=== PATIENT | female | born 1990 | race Hispanic/Latino ===

== ENCOUNTER 2016-10-02 10:51 | Emergency (ER) | payer MEDICAID, OTHER ==
[2016-10-02 10:51] VITALS: BMI 20.2
[2016-10-02 10:57] VITALS: BP 139/72; PULSE 71; RESP 18; TEMP 98.3; O2SAT 100
--- NOTE | 2016-10-02 11:45 | ED PDOC ---
HPI: General Adult Time Seen by Provider: 10/02/16 11:11 Chief Complaint (Nursing): Headache History Per: Patient History/Exam Limitations: no limitations Onset/Duration Of Symptoms: Days Additional Complaint(s): 26-year-old female, presents to the emergency department with complaints of headache. Patient states she sustained injury to the right side of the back of her head and left neck, three days ago. Patient notes that she has been experiencing persistent localized pain since fall. She is taking Motrin with minimal relief, (last dose last night), resulting in her coming to the ED for evaluation. No relieving/exacerbating factors. Not the worst headache of her life. Denies numbness/weakness, visual changes, nausea/vomiting, dizziness, or any other asspcoayed symptoms. No other complaints at this time. Past Medical History Reviewed: Historical Data, Nursing Documentation, Vital Signs Vital Signs: Last Vital Signs Temp 98.3 F 10/02/16 10:56 Pulse 71 10/02/16 10:56 Resp 18 10/02/16 10:56 BP 139/72 10/02/16 10:56 Pulse Ox 100 10/02/16 11:59 - Family History Family History: States: Unknown Family Hx - Immunization History Hx Tetanus Toxoid Vaccination: Yes Hx Influenza Vaccination: Yes Hx Pneumococcal Vaccination: No - Home Medications Home Medications: Ambulatory Orders Medication Instructions Recorded Ibuprofen [Motrin Tab] 800 mg PO Q6H PRN #20 tab 10/02/16 diaZEpam [Valium] 5 mg PO Q6H PRN #15 tab 10/02/16 - Allergies Allergies/Adverse Reactions: Allergies Allergy/AdvReac Type Severity Reaction Status Date / Time No Known Allergies Allergy Verified 02/27/16 14:36 Review of Systems ROS Statement: Except As Marked, All Systems Reviewed And Found Negative Constitutional: Negative for: Fever, Chills Respiratory: Negative for: Shortness of Breath Gastrointestinal: Negative for: Nausea, Vomiting Musculoskeletal: Positive for: Neck Pain. Negative for: Back Pain Neurological: Positive for: Headache. Negative for: Weakness, Numbness, Incoordination, Change in Speech, Confusion, Seizures, Altered Mental Status, Dizziness Physical Exam - Reviewed Nursing Documentation Reviewed: Yes Vital Signs Reviewed: Yes - Physical Exam Appears: Positive for: Non-toxic, No Acute Distress Head Exam: Positive for: ATRAUMATIC, NORMOCEPHALIC (mild tenderness to base of skull) Skin: Positive for: Warm, Dry. Negative for: Rash Eye Exam: Positive for: Normal appearance, EOMI Neck: Positive for: Supple (No paracervical tenderness. ) Cardiovascular/Chest: Positive for: Regular Rate, Rhythm Respiratory: Negative for: Accessory Muscle Use, Respiratory Distress Back: Positive for: Other (Right paraspinal tenderness, and right trapezius) Extremity: Positive for: Normal ROM Neurologic/Psych: Positive for: Alert, clinical review specialist II-XII, Oriented, Gait (normal), Other (No focal neuro deficits.). Negative for: Motor/Sensory Deficits - ECG O2 Sat by Pulse Oximetry: 100 Medical Decision Making Medical Decision Making: Impression Headache. Plan * Toradol, Valium * Reassess and Disposition PT states she prefers not to wait. Scribe Attestation: Documented by David Avalos, acting as a scribe for JUAN MANUEL Miller. Provider Scribe Attestation: All medical record entries made by the Scribe were at my direction and personally dictated by me. I have reviewed the chart and agree that the record accurately reflects my personal performance of the history, physical exam, medical decision making, and the department course for this patient. I have also personally directed, reviewed, and agree with the discharge instructions and disposition. Disposition - Clinical Impression Clinical Impression: Neck muscle strain - Patient ED Disposition Is Patient to be Admitted: No - Disposition Disposition: Routine/Home Disposition Time: 11:54 Condition: STABLE Prescriptions: Ibuprofen [Motrin Tab] 800 mg PO Q6H PRN #20 tab PRN Reason: Pain diaZEpam [Valium] 5 mg PO Q6H PRN #15 tab PRN Reason: Pain Instructions: Musculoskeletal Pain (ED)
== END 2016-10-02 12:06 | disposition home or self-care (01) ==
LOC: H.ER 10:51
DX: M54.2 Cervicalgia (principal)

== ENCOUNTER 2017-01-14 11:44 | Emergency (ER) | payer MEDICAID, OTHER ==
[2017-01-14 11:44] VITALS: BMI 20.2
[2017-01-14 11:56] VITALS: BP 102/64; PULSE 82; RESP 18; TEMP 98.2; O2SAT 100
--- NOTE | 2017-01-14 13:02 | ED PDOC ---
HPI: General Adult Time Seen by Provider: 01/14/17 12:04 Chief Complaint (Nursing): Eye Problem History Per: Patient Additional Complaint(s): Pt. states yesterday she developed R sided eye redness and discharge which became worse this morning. Pt. states she had a hard time opening the R eye. Denies visual changes, pain, trauma, fever, contact lens use, hx of DM. Past Medical History Reviewed: Historical Data, Nursing Documentation, Vital Signs Vital Signs: Last Vital Signs Temp 98.2 F 01/14/17 11:54 Pulse 82 01/14/17 11:54 Resp 18 01/14/17 11:54 BP 102/64 01/14/17 11:54 Pulse Ox 100 01/14/17 11:54 - Family History Family History: States: No Known Family Hx - Immunization History Hx Tetanus Toxoid Vaccination: Yes Hx Influenza Vaccination: Yes Hx Pneumococcal Vaccination: No - Home Medications Home Medications: Ambulatory Orders Medication Instructions Recorded Ibuprofen [Motrin Tab] 800 mg PO Q6H PRN #20 tab 10/02/16 diaZEpam [Valium] 5 mg PO Q6H PRN #15 tab 10/02/16 Erythromycin 0.5% [Erythromycin] 1 applic RIGHTEYE Q6 #1 tube 01/14/17 - Allergies Allergies/Adverse Reactions: Allergies Allergy/AdvReac Type Severity Reaction Status Date / Time No Known Allergies Allergy Verified 01/14/17 11:51 Review of Systems ROS Statement: Except As Marked, All Systems Reviewed And Found Negative Physical Exam - Physical Exam Appears: Positive for: Well, Non-toxic, No Acute Distress Head Exam: Positive for: ATRAUMATIC, NORMAL INSPECTION, NORMOCEPHALIC Skin: Positive for: Normal Color, Warm. Negative for: Rash Eye Exam: Positive for: EOMI, PERRL, Conjunctival injection (R eye), Other ( yellow crusting noted to R eye). Negative for: Periorbital swelling, Periorbital tenderness Neurologic/Psych: Positive for: Alert, Oriented. Negative for: Aphasia, Facial Droop - ECG O2 Sat by Pulse Oximetry: 100 Disposition - Clinical Impression Clinical Impression: Conjunctivitis - Patient ED Disposition Is Patient to be Admitted: No - Disposition Referrals: [facility] [Outside] Disposition: Routine/Home Disposition Time: 12:55 Condition: STABLE Prescriptions: Erythromycin 0.5% [Erythromycin] 1 applic RIGHTEYE Q6 #1 tube Instructions: Conjunctivitis (ED) Print Language: SUDANESE
== END 2017-01-14 13:27 | disposition home or self-care (01) ==
LOC: H.ER 11:44
DX: H10.9 Unspecified conjunctivitis (principal)

== ENCOUNTER 2017-06-24 13:23 | Emergency (ER) | payer MEDICAID, OTHER ==
[2017-06-24 13:24] VITALS: BMI 20.2
[2017-06-24 13:36] VITALS: BP 117/70; PULSE 65; RESP 16; TEMP 97; O2SAT 98
--- NOTE | 2017-06-24 14:30 | ED PDOC ---
HPI: Female Pain Time Seen by Provider: 06/24/17 14:20 Chief Complaint (Nursing): Female Genitourinary Chief Complaint (Provider): uti History Per: Patient History/Exam Limitations: no limitations Additional Complaint(s): 27yo F in Ed for eval of dysurai, urinary freq, urgency and burning. states she is sexually active and has not use protection, last DEPO preva inj was at least 3 months ago and she had not seen her period no back pain admits to once time vomiting two days ago. Past Medical History Reviewed: Historical Data, Nursing Documentation, Vital Signs Vital Signs: Last Vital Signs Temp 97.0 F L 06/24/17 13:33 Pulse 65 06/24/17 13:33 Resp 16 06/24/17 13:33 BP 117/70 06/24/17 13:33 Pulse Ox 98 06/24/17 13:33 - Medical History PMH: No Chronic Diseases - Family History Family History: States: Unknown Family Hx - Immunization History Hx Tetanus Toxoid Vaccination: Yes (5 YEARS AGO) Hx Influenza Vaccination: Yes Hx Pneumococcal Vaccination: No - Home Medications Home Medications: Ambulatory Orders Medication Instructions Recorded Cephalexin [Keflex] 250 mg PO Q6 3 Days #12 capsule 06/01/17 oxyCODONE/Acetaminophen [Percocet 1 ea PO Q8 PRN 2 Days #3 tab MDD 3 06/01/17 5/325 mg Tab] Nitrofurantoin Macrocrystals 100 mg PO BID #14 cap 06/24/17 [Macrobid] Multivit/Folic Acid/I 1 tab PO DAILY #30 tab 06/24/17 [ Plus] - Allergies Allergies/Adverse Reactions: Allergies Allergy/AdvReac Type Severity Reaction Status Date / Time No Known Allergies Allergy Verified 06/01/17 21:20 Review of Systems ROS Statement: Except As Marked, All Systems Reviewed And Found Negative Gastrointestinal: Positive for: Nausea Genitourinary Female: Positive for: Dysuria, Frequency. Negative for: Hematuria , Vaginal Discharge Physical Exam - Reviewed Nursing Documentation Reviewed: Yes Vital Signs Reviewed: Yes - Physical Exam Appears: Positive for: Well, Non-toxic, No Acute Distress Skin: Positive for: Normal Color, Warm, DRY Cardiovascular/Chest: Positive for: Regular Rate, Rhythm Respiratory: Positive for: CNT, Normal Breath Sounds Gastrointestinal/Abdominal: Positive for: Normal Exam, Bowel Sounds Back: Negative for: L CVA Tenderness, R CVA Tenderness Extremity: Positive for: Normal ROM Neurologic/Psych: Positive for: Alert, Oriented - Laboratory Results Urine POC: Positive Urine dip results: Positive for: Leukocyte Esterase - ECG O2 Sat by Pulse Oximetry: 98 Medical Decision Making Medical Decision Making: PT with (+) preg and UTI will be treated with macrobid and vitamins. Disposition - Clinical Impression Clinical Impression: UTI (urinary tract infection), Positive test - Patient ED Disposition Is Patient to be Admitted: No Counseled Patient/Family Regarding: Need For Followup - Disposition Disposition: Routine/Home Disposition Time: 14:37 Condition: STABLE Prescriptions: Nitrofurantoin Macrocrystals [Macrobid] 100 mg PO BID #14 cap Multivit/Folic Acid/I [ Plus] 1 tab PO DAILY #30 tab Instructions: Urinary Tract Infection in (ED)
== END 2017-06-24 15:17 | disposition home or self-care (01) ==
LOC: H.ER 13:23
DX: N39.0 Urinary tract infection, site not specified (principal)

== ENCOUNTER 2018-01-01 01:25 | Emergency (ER) | payer MEDICAID, OTHER ==
[2018-01-01 01:26] VITALS: BMI 20.2
[2018-01-01 01:42] VITALS: BP 105/68; PULSE 72; RESP 16; TEMP 99; O2SAT 100
[2018-01-01] MEDS ORDERED: Povidone Iodine Topical 10% Sol ONE (02:00)
--- NOTE | 2018-01-01 02:04 | ED PDOC ---
Lower Extremity Pain/Injury Time Seen by Provider: 01/01/18 01:47 Chief Complaint (Nursing): Lower Extremity Problem/Injury Chief Complaint (Provider): right foot injury History Per: Patient History/Exam Limitations: no limitations Onset/Duration Of Symptoms: Hrs Current Symptoms Are (Timing): Still Present Additional Complaint(s): 27 y/o female presents for evaluation of injury to 2nd and 3rd digits of right foot sustained prior to arrival. Patient states door slammed on foot. Denies numbness/weakness right lower extremity, limitation of movement. Tetanus up to date Past Medical History Reviewed: Historical Data, Nursing Documentation, Vital Signs Vital Signs: Last Vital Signs Temp 99 F 01/01/18 01:38 Pulse 72 01/01/18 01:38 Resp 16 01/01/18 01:38 BP 105/68 01/01/18 01:38 Pulse Ox 100 01/01/18 01:38 - Medical History PMH: No Chronic Diseases - Surgical History Surgical History: No Surg Hx - Family History Family History: States: Unknown Family Hx - Immunization History Hx Tetanus Toxoid Vaccination: Yes (5 YEARS AGO) Hx Influenza Vaccination: Yes Hx Pneumococcal Vaccination: No - Home Medications Home Medications: Ambulatory Orders Medication Instructions Recorded Cephalexin [Keflex] 250 mg PO Q6 3 Days #12 capsule 06/01/17 oxyCODONE/Acetaminophen [Percocet 1 ea PO Q8 PRN 2 Days #3 tab MDD 3 06/01/17 5/325 mg Tab] Nitrofurantoin Macrocrystals 100 mg PO BID #14 cap 06/24/17 [Macrobid] Multivit/Folic Acid/I 1 tab PO DAILY #30 tab 06/24/17 [ Plus] Ibuprofen [Motrin Tab] 1 tab PO Q6 PRN #20 tab 01/01/18 - Allergies Allergies/Adverse Reactions: Allergies Allergy/AdvReac Type Severity Reaction Status Date / Time No Known Allergies Allergy Verified 06/01/17 21:20 Review of Systems ROS Statement: Except As Marked, All Systems Reviewed And Found Negative Musculoskeletal: Positive for: Foot Pain (right foot 2nd and 3rd digits) Physical Exam - Reviewed Nursing Documentation Reviewed: Yes Vital Signs Reviewed: Yes - Physical Exam Appears: Positive for: Well, Non-toxic, No Acute Distress Pulses-Dorsalis Pedis (L): 2+ Pulses-Dorsalis Pedis (R): 2+ Pulses-Post. Tibialis (L): 2+ Pulses-Post. Tibialis (R): 2+ Extremity: Positive for: Normal ROM, Other (dried blood noted base of nailbed of 2nd and 3rd digits with surrounding edema/ecchoymsis. Small subungual hematoma right foot 4th digit. Distal NV/motor intact) Neurologic/Psych: Positive for: Alert, Oriented - ECG O2 Sat by Pulse Oximetry: 100 - Other Rad xray right foot X-Ray: Viewed By Me X-Ray Interpretation: no acute findings - Progress ED Course And Treament: Right foot soaked in NS/betadine Skin avulsion of eponychium/cuticles of 2nd and 3rd digits of right foot with proximal nails exposed. Nails intact. No active bleeding. Bacitracin and telfa applied to areas of skin avulsion. Patient given surgical shoe Advised RICE. Rx Ibuprofen provided Follow up PMD/podiatry Return precautions given Disposition - Clinical Impression Clinical Impression: Avulsion of skin of toe, Injury of toenail of right foot, Subungual hematoma - Patient ED Disposition Is Patient to be Admitted: No Counseled Patient/Family Regarding: Studies Performed, Diagnosis, Need For Followup - Disposition Referrals: Podiatry Clinic [Outside] Disposition: Routine/Home Disposition Time: 03:39 Condition: STABLE Prescriptions: Ibuprofen [Motrin Tab] 1 tab PO Q6 PRN #20 tab PRN Reason: Pain, Moderate (4-7) Instructions: Toe Injury Forms: [facility] (Moz[place]ican)
--- NOTE | 2018-01-01 09:00 | RAD ---
Date of service: 01/01/2018 PROCEDURE: Right Foot Radiographs. HISTORY: injury distal 2nd and 3rd digits COMPARISON: None. FINDINGS: BONES: Normal. No fracture. JOINTS: Normal. SOFT TISSUES: Normal. OTHER FINDINGS: Os peroneum present IMPRESSION: No fractures. No dislocation. Incidental os peroneum noted
== END 2018-01-01 03:42 | disposition home or self-care (01) ==
LOC: H.ER 01:25
DX: S99.921A Unspecified injury of right foot, initial encounter (principal); S91.204A Unspecified open wound of right lesser toe(s) with damage to nail, initial encounter; S90.221A Contusion of right lesser toe(s) with damage to nail, initial encounter; W23.0XXA Caught, crushed, jammed, or pinched between moving objects, initial encounter